=== PATIENT | male | born 1960 | race Hispanic/Latino ===

== ENCOUNTER 2016-11-15 02:15 | Emergency (ER) | payer MEDICAID, OTHER ==
[2016-11-15] MEDS ORDERED: NACL 0.9% 500 ML 500 ML IV ONE (02:45)
[2016-11-15 03:15] LABS: Basophils % (Auto) 0.6 % (0.0-1.8); Eosinophils % (Auto) 3.1 % (0.0-4.3); Hematocrit 34.5 % (35.5-45.6); Hemoglobin 11.7 gm/dl (11.8-15.2); Mean Corpuscular HGB Conc 34 % (32-34); Mean Corpuscular Hemoglobin 28 pg (28-32); Mean Corpuscular Volume 82 fl (84-94); Platelet Count 221 K/mm3 (140-440); Red Blood Count 4.19 M/mm3 (3.65-5.03); Red Cell Distribution Width 15.1 % (13.2-15.2); White Blood Count 5.6 K/mm3 (4.5-11.0)
[2016-11-15 03:25] LABS: INR 0.89 (0.87-1.13)
[2016-11-15 03:34] LABS: Alanine Aminotransferase 59 units/L (7-56); Albumin 3.7 g/dL (3.9-5); Albumin/Globulin Ratio 1.3 %; Alkaline Phosphatase 123 units/L (35-129); BUN/Creatinine Ratio 8.75; Blood Urea Nitrogen 7 mg/dL (9-20); Calcium 8.6 mg/dL (8.4-10.2); Carbon Dioxide 25 mmol/L (22-30); Glucose 126 mg/dL (75-100); Total Protein 6.5 g/dL (6.3-8.2)
[2016-11-15 03:35] LABS: Anion Gap 17 mmol/L; Chloride 100.8 mmol/L (98-107); Potassium 3.8 mmol/L (3.6-5.0); Sodium 139 mmol/L (137-145)
[2016-11-15] MEDS ORDERED: SUBLIMAZE IV ONE ×2 (03:40→04:23)
--- NOTE | 2016-11-15 03:53 | XRay Report ---
FINAL REPORT EXAM: XR CHEST 1V AP HISTORY: possible Sepsis COMPARISON: None available. FINDINGS: Frontal view(s) of the chest obtained. Cardiac silhouette within normal limits. Shallow inspiration. Mild linear atelectasis at the lung bases. No gross consolidation or effusion. No pneumothorax. IMPRESSION: Mild linear atelectasis at the lung bases related to shallow inspiration. No large consolidation or effusion to suggest pneumonia.
[2016-11-15 04:11] LABS: Bilirubin,Urine NEG (Negative); Blood,Urine NEG (Negative); Ketones,Urine NEG (Negative); Leukocyte Esterase,Urine SM (Negative); Nitrite,Urine NEG (Negative); Protein,Urine <15 mg/dL mg/dL (Negative); Urobilinogen,Urine < 2.0 mg/dL (<2.0)
[2016-11-15] MEDS ORDERED: DILAUDID IV ONE (05:23)
[2016-11-15] MEDS ORDERED: ROCEPHIN/NS 1 GM/50 ML 1 GM/50 ML BAG IV ONE (05:23)
--- NOTE | 2016-11-15 05:59 | Emergency Department Report ---
ED General Adult HPI - General Chief complaint: Pain General Stated complaint: FEVER,NECK AND BACK PAIN Time Seen by Provider: 11/15/16 03:39 Source: patient Mode of arrival: Wheelchair Limitations: Physical Limitation - History of Present Illness Initial comments: Physician is a 56-year-old male past medical history of diabetes and cervical fusion who presents with nausea vomiting diarrhea and fever that has been going on for the last 10 days. Patient states that he has been very weak at home. Patient states that he is having neck pain may now 10 it radiates to his back moving his neck makes it worse up and makes it better. He states that this is typical for him however it's really bad because he been vomiting and very sick. He was told by his doctor to comment to the emergency department to be evaluated for possible sepsis. Patient denies any injury to his neck. Severity scale (0 -10): 6 - Related Data Home Medications Medication Instructions Recorded Confirmed Last Taken Carisoprodol [Soma] 350 mg PO QID 04/01/14 06/08/16 06/07/16 21:00 Diazepam [Valium] 10 mg PO TID 04/01/14 06/08/16 06/07/16 21:00 Trazodone HCl [Oleptro ER] 50 mg PO HS 04/01/14 06/08/16 06/07/16 21:00 Aspirin [Aspirin TAB] 325 mg PO ONCE PRN 05/24/16 06/08/16 06/04/16 09:00 Celecoxib [celeBREX] 200 mg PO BID 05/24/16 06/08/16 06/07/16 21:00 Pot Bicarb/Sod Bicarb/Cit AC 1 each PO PRN PRN 05/24/16 05/24/16 Unknown [[place] Gold Tab Eff] Chlorzoxazone 500 mg PO 4XD 06/08/16 06/08/16 Unknown Crestor 10 mg PO HS 06/08/16 06/08/16 06/07/16 21:00 Gabapentin [Neurontin] 300 mg PO 4XD 06/08/16 06/08/16 06/08/16 08:00 Gemfibrozil 600 mg PO BID 06/08/16 06/08/16 06/07/16 09:00 HYDROcodone/APAP 7.5-325 10 mg PO 5XD 06/08/16 06/08/16 06/07/16 21:00 HumaLOG Mix 75/25 Vial 75 units SUB-Q BID 06/08/16 06/08/16 Unknown HumaLOG VIAL 10 units SUB-Q PRN 06/08/16 06/08/16 Unknown Insulin Detemir [Levemir] 50 units SUB-Q BID 06/08/16 06/08/16 06/07/16 17:00 Omeprazole 40 mg PO DAILY 06/08/16 06/08/16 06/07/16 09:00 Prednisone 10 mg PO DAILY 06/08/16 06/08/16 06/05/16 09:00 oxyCODONE /ACETAMINOPHEN [Percocet 10 tab PO 5XD 06/08/16 06/08/16 06/07/16 21: 00 5/325 mg] traMADol 50 mg PO TID 06/08/16 06/08/16 06/07/16 21:00 Previous Rx's Medication Instructions Recorded Last Taken Type Carisoprodol [Soma] 350 mg PO TID PRN #60 tablet 06/10/16 Unknown Rx Diazepam Tab [Valium] 10 mg PO TID tablet 06/10/16 Unknown Rx Gemfibrozil [Lopid] 600 mg PO BIDDIAB tablet 06/10/16 Unknown Rx Pantoprazole [Protonix TAB] 40 mg PO DAILY tablet 06/10/16 Unknown Rx Sulfamethoxazole/Trimethoprim 1 each PO BID #10 tablet 11/15/16 Unknown Rx [Bactrim DS TAB] Allergies Allergy/AdvReac Type Severity Reaction Status Date / Time morphine Allergy Severe Anaphylaxis Verified 04/02/14 08:27 ED Review of Systems ROS: Stated complaint: FEVER,NECK AND BACK PAIN Other details as noted in HPI Constitutional: fever Eyes: denies: eye pain, eye discharge, vision change ENT: denies: ear pain, throat pain Respiratory: denies: cough, shortness of breath, wheezing Cardiovascular: denies: chest pain, palpitations Endocrine: no symptoms reported Gastrointestinal: nausea, vomiting, diarrhea. denies: abdominal pain Genitourinary: denies: urgency, dysuria Musculoskeletal: back pain, other (neck pain). denies: joint swelling, arthralgia Skin: denies: rash, lesions Neurological: denies: headache, weakness, paresthesias Psychiatric: denies: anxiety, depression Hematological/Lymphatic: denies: easy bleeding, easy bruising ED Past Medical Hx - Past Medical History Previous Medical History?: Yes Hx Hypertension: No Hx Heart Attack/AMI: No Hx Diabetes: Yes (8YRS) Hx GERD: Yes Hx Renal Disease: No Hx Arthritis: Yes Hx Seizures: Yes (LAST SEIZURE at age 6) Hx COPD: Yes Additional medical history: Home 02 2 liters [place] x 3 years - Surgical History Past Surgical History?: Yes Additional Surgical History: Multiple Neck sugeries last [address] Calle - Social History Smoking Status: Current Some Day Smoker - Medications Home Medications: Home Medications Medication Instructions Recorded Confirmed Last Taken Type Carisoprodol [Soma] 350 mg PO QID 04/01/14 06/08/16 06/07/16 21:00 History Diazepam [Valium] 10 mg PO TID 04/01/14 06/08/16 06/07/16 21:00 History Trazodone HCl [Oleptro ER] 50 mg PO HS 04/01/14 06/08/16 06/07/16 21:00 History Aspirin [Aspirin TAB] 325 mg PO ONCE PRN 05/24/16 06/08/16 06/04/16 09:00 History Celecoxib [celeBREX] 200 mg PO BID 05/24/16 06/08/16 06/07/16 21:00 History Pot Bicarb/Sod Bicarb/Cit AC 1 each PO PRN PRN 05/24/16 05/24/16 Unknown History [[place] Gold Tab Eff] Chlorzoxazone 500 mg PO 4XD 06/08/16 06/08/16 Unknown History Crestor 10 mg PO HS 06/08/16 06/08/16 06/07/16 21:00 History Gabapentin [Neurontin] 300 mg PO 4XD 06/08/16 06/08/16 06/08/16 08:00 History Gemfibrozil 600 mg PO BID 06/08/16 06/08/16 06/07/16 09:00 History HYDROcodone/APAP 7.5-325 10 mg PO 5XD 06/08/16 06/08/16 06/07/16 21:00 History HumaLOG Mix 75/25 Vial 75 units SUB-Q BID 06/08/16 06/08/16 Unknown History HumaLOG VIAL 10 units SUB-Q PRN 06/08/16 06/08/16 Unknown History Insulin Detemir [Levemir] 50 units SUB-Q BID 06/08/16 06/08/16 06/07/16 17:00 History Omeprazole 40 mg PO DAILY 06/08/16 06/08/16 06/07/16 09:00 History Prednisone 10 mg PO DAILY 06/08/16 06/08/16 06/05/16 09:00 History oxyCODONE /ACETAMINOPHEN [Percocet 10 tab PO 5XD 06/08/16 06/08/16 06/07/16 21: 00 History 5/325 mg] traMADol 50 mg PO TID 06/08/16 06/08/16 06/07/16 21:00 History Carisoprodol [Soma] 350 mg PO TID PRN #60 tablet 06/10/16 Unknown Rx Diazepam Tab [Valium] 10 mg PO TID tablet 06/10/16 Unknown Rx Gemfibrozil [Lopid] 600 mg PO BIDDIAB tablet 06/10/16 Unknown Rx Pantoprazole [Protonix TAB] 40 mg PO DAILY tablet 06/10/16 Unknown Rx Sulfamethoxazole/Trimethoprim 1 each PO BID #10 tablet 11/15/16 Unknown Rx [Bactrim DS TAB] ED Physical Exam - General Limitations: Physical Limitation ED Course Vital Signs 11/15/16 11/15/16 11/15/16 02:35 02:45 04:59 Temperature 97.9 F 98 F Pulse Rate 62 56 L Respiratory 20 18 20 Rate Blood Pressure 144/76 Blood Pressure 131/74 [Left] O2 Sat by Pulse 97 100 100 Oximetry - Reevaluation(s) Reevaluation #1: 11/15/16 05:58 Patient is felt better after IV Dilaudid and IV Rocephin I'll send patient home with Bactrim and will have patient follow-up with his primary care provider. Patient agrees with plan. ED Medical Decision Making - Lab Data Result diagrams: 11/15/16 02:56 11/15/16 02:56 Lab Results 11/15/16 11/15/16 11/15/16 Range/Units 02:56 02:56 02:56 WBC 5.6 (4.5-11.0) K/mm3 RBC 4.19 (3.65-5.03) M/mm3 Hgb 11.7 L (11.8-15.2) gm/dl Hct 34.5 L (35.5-45.6) % MCV 82 L (84-94) fl MCH 28 (28-32) pg MCHC 34 (32-34) % RDW 15.1 (13.2-15.2) % Plt Count 221 (140-440) K/mm3 Lymph % (Auto) 41.7 H (13.4-35.0) % [place] % (Auto) 7.3 (0.0-7.3) % Eos % (Auto) 3.1 (0.0-4.3) % Baso % (Auto) 0.6 (0.0-1.8) % Lymph # 2.4 (1.2-5.4) K/mm3 [place] # 0.4 (0.0-0.8) K/mm3 Eos # 0.2 (0.0-0.4) K/mm3 Baso # 0.0 (0.0-0.1) K/mm3 Seg Neutrophils % 47.3 (40.0-70.0) % Seg Neutrophils # 2.7 (1.8-7.7) K/mm3 PT 12.5 (12.2-14.9) Sec. INR 0.89 (0.87-1.13) VBG pH (7.320-7.420) Sodium 139 (137-145) mmol/L Potassium 3.8 (3.6-5.0) mmol/L Chloride 100.8 (98-107) mmol/L Carbon Dioxide 25 (22-30) mmol/L Anion Gap 17 mmol/L BUN 7 L (9-20) mg/dL Creatinine 0.8 (0.8-1.5) mg/dL Estimated GFR > 60 ml/min BUN/Creatinine Ratio 8.75 % Glucose 126 H (75-100) mg/dL Lactic Acid (0.7-2.0) mmol/L Calcium 8.6 (8.4-10.2) mg/dL Total Bilirubin 0.20 (0.1-1.2) mg/dL AST 35 (5-40) units/L ALT 59 H (7-56) units/L Alkaline Phosphatase 123 (35-129) units/L Total Protein 6.5 (6.3-8.2) g/dL Albumin 3.7 L (3.9-5) g/dL Albumin/Globulin Ratio 1.3 % Urine Color (Yellow) Urine Turbidity (Clear) Urine pH (5.0-7.0) Ur Specific [place] (1.003-1.030) Urine Protein (Negative) mg/dL Urine Glucose (UA) (Negative) mg/dL Urine Ketones (Negative) mg/dL Urine Blood (Negative) Urine Nitrite (Negative) Urine Bilirubin (Negative) Urine Urobilinogen (<2.0) mg/dL Ur Leukocyte Esterase (Negative) Urine WBC (Auto) (0.0-6.0) /HPF Urine RBC (Auto) (0.0-6.0) /HPF 11/15/16 11/15/16 11/15/16 Range/Units 02:56 02:56 03:46 WBC (4.5-11.0) K/mm3 RBC (3.65-5.03) M/mm3 Hgb (11.8-15.2) gm/dl Hct (35.5-45.6) % MCV (84-94) fl MCH (28-32) pg MCHC (32-34) % RDW (13.2-15.2) % Plt Count (140-440) K/mm3 Lymph % (Auto) (13.4-35.0) % [place] % (Auto) (0.0-7.3) % Eos % (Auto) (0.0-4.3) % Baso % (Auto) (0.0-1.8) % Lymph # (1.2-5.4) K/mm3 [place] # (0.0-0.8) K/mm3 Eos # (0.0-0.4) K/mm3 Baso # (0.0-0.1) K/mm3 Seg Neutrophils % (40.0-70.0) % Seg Neutrophils # (1.8-7.7) K/mm3 PT (12.2-14.9) Sec. INR (0.87-1.13) VBG pH 7.322 (7.320-7.420) Sodium (137-145) mmol/L Potassium (3.6-5.0) mmol/L Chloride (98-107) mmol/L Carbon Dioxide (22-30) mmol/L Anion Gap mmol/L BUN (9-20) mg/dL Creatinine (0.8-1.5) mg/dL Estimated GFR ml/min BUN/Creatinine Ratio % Glucose (75-100) mg/dL Lactic Acid 1.10 (0.7-2.0) mmol/L Calcium (8.4-10.2) mg/dL Total Bilirubin (0.1-1.2) mg/dL AST (5-40) units/L ALT (7-56) units/L Alkaline Phosphatase (35-129) units/L Total Protein (6.3-8.2) g/dL Albumin (3.9-5) g/dL Albumin/Globulin Ratio % Urine Color Yellow (Yellow) Urine Turbidity Clear (Clear) Urine pH 6.0 (5.0-7.0) Ur Specific [place] 1.021 (1.003-1.030) Urine Protein <15 mg/dl (Negative) mg/dL Urine Glucose (UA) 50 (Negative) mg/dL Urine Ketones Neg (Negative) mg/dL Urine Blood Neg (Negative) Urine Nitrite Neg (Negative) Urine Bilirubin Neg (Negative) Urine Urobilinogen < 2.0 (<2.0) mg/dL Ur Leukocyte Esterase Sm (Negative) Urine WBC (Auto) 36.0 H (0.0-6.0) /HPF Urine RBC (Auto) 2.0 (0.0-6.0) /HPF - EKG Data -: EKG Interpreted by Sc - EKG Data 11/15/16 06:00 EKG shows sinus bradycardia and left axis deviation no T segment elevations or T -wave inversions. No acute changes compared to old EKG. - Radiology Data Radiology results: report reviewed, image reviewed Chest x-ray: Shows no acute cardiopulmonary disease - Medical Decision Making Chief medical diagnosis: Pneumonia Differential medical diagnosis: Urinary tract infection, sepsis, metabolic abnormality, cervicalgia CBC, CMP, lactic acid, blood cultures, IV fluids, IV analgesic pain medication and IV antibiotics Patient does not have sepsis. He does not need the 30 mL per kilo bolus. I will give him IV Rocephin just for his simple UTI. Discussed with patient he will be discharged with follow-up with his primary care provider. Patient is having some minor neck pain. Discussed that he needs to follow-up with his neurosurgeon. Patient has no neurologic deficits he states this neck pain is new abscesses chronic back pain. Additional verbal discharge instruction were given. Critical care attestation.: If time is entered above; I have spent that time in minutes in the direct care of this critically ill patient, excluding procedure time. ED Disposition Clinical Impression: Cervicalgia Diabetes mellitus Qualifiers: Diabetes mellitus type: type 2 Diabetes mellitus complication status: without complication Diabetes mellitus mcc insulin use: unspecified mcc insulin use status Qualified Code(s): E11.9 - Type 2 diabetes mellitus without complications UTI (urinary tract infection) Qualifiers: Urinary tract infection type: acute cystitis Hematuria presence: without hematuria Qualified Code(s): N30.00 - Acute cystitis without hematuria Disposition: DC- TO HOME OR SELFCARE Is pt being admited?: No Does the pt Need Aspirin: No Condition: Stable Instructions: Urinary Tract Infection in Children (ED), Diabetes Mellitus Type 2 in Adults (ED) Prescriptions: Sulfamethoxazole/Trimethoprim [Bactrim DS TAB] 1 each PO BID #10 tablet
[2016-11-15 07:32] VITALS: BP 132/76
== END 2016-11-15 06:15 | disposition home or self-care (01) ==
LOC: ED 02:15
DX: M54.2 Cervicalgia (principal); E11.9 Type 2 diabetes mellitus without complications; N30.00 Acute cystitis without hematuria; K21.9 Gastro-esophageal reflux disease without esophagitis; M19.90 Unspecified osteoarthritis, unspecified site; J44.9 Chronic obstructive pulmonary disease, unspecified; Z72.0 Tobacco use; Z79.82 Long term (current) use of aspirin; Z79.01 Long term (current) use of anticoagulants; Z88.5 Allergy status to narcotic agent; Z79.4 Long term (current) use of insulin
CPT/HCPCS: 36415; 71010; 80053; 81001; 82140; 82805; 85025; 85610; 87040; 93005; 93010; 96365; 96366; 96375; 99284; J0696; J1170; J3010; J7040